=== PATIENT | female | born 1955 | race Caucasian/White ===

== ENCOUNTER 2019-01-11 10:22 | Inpatient (IN) ==
[2019-01-11] MEDS ORDERED: Azithromycin 500 MG in 0.9 % Sodium Chloride 250 ML IVPB ONE (10:51)
[2019-01-11] MEDS ORDERED: methylPREDNISolone 125 MG/2 ML VIAL IVP ONE (10:51)
[2019-01-11] MEDS ORDERED: Ipratropium/Albuterol Neb 3 ML IH ONE (10:51)
[2019-01-11] MEDS ORDERED: cefTRIAXone 1,000 MG in Water for inj. (sterile) 10 ML IVP ONE (10:51)
[2019-01-11 11:23] LABS: Basophils % 0.4 %; Eosinophils # 0.2 K/mcL (0.0-0.6); Eosinophils % 2.5 %; Hematocrit 30.3 % (35.3-44.9); Hemoglobin 9.2 g/dL (11.5-15.4); Immature Granulocytes % 0.8 % (0-4); Lymphocytes # 1.5 K/mcL (0.6-4.6); Lymphocytes % 20.2 %; Mean Corpuscular HGB Conc 30.4 g/dL (31.6-35.5); Mean Corpuscular Hemoglobin 28.6 pg (28.0-33.3); Mean Corpuscular Volume 94.1 fL (83.0-100.0); Mean Platelet Volume 10.7 fL (9.4-12.4); Monocytes # 0.4 K/mcL (0.0-1.3); Monocytes % 6.1 %; Nucleated Red Blood Cells 0.3 /100 WBC (0); Platelet Count 141 K/mcL (140-400); Red Blood Count 3.22 M/mcL (3.82-4.97); White Blood Count 7.2 K/mcL (4.3-11.1)
[2019-01-11 11:45] LABS: BUN/Creatinine Ratio 20 (6-26); Blood Urea Nitrogen 20 mg/dL (8-23); Calcium 9.2 mg/dL (8.6-10.3); Carbon Dioxide 37 mEq/L (23-29); Chloride 92 mEq/L (98-107); Glucose 132 mg/dL (70-105); Osmolality,Calculated 286 (280-300); Potassium 4.4 mEq/L (3.5-5.1); Sodium 136 mEq/L (136-145); Troponin I < 0.03 ng/mL (< 0.04); eGFR For African Americans > 60 (> 60); eGFR For Non-African Americans 57 (> 60)
[2019-01-11] MEDS ORDERED: Furosemide 40 MG/4 ML VIAL IVP ONE (14:58)
[2019-01-11] MEDS ORDERED: Nitroglycerin 1 INCH/GM PACKET TP ONE (14:58)
[2019-01-11] MEDS ORDERED: Naloxone 0.4 MG/ML INJ IVP PRN (16:29)
[2019-01-11] MEDS ORDERED: Furosemide 80 MG in 0.9 % Sodium Chloride 50 ML IV ONE (16:30)
[2019-01-11] MEDS ORDERED: *HR* Dextrose 50 % in Water (Syg) 50 ML SYRINGE IVP PRN (18:16)
[2019-01-11] MEDS ORDERED: D5% in Water 1,000 ML IVC PRN (18:16)
[2019-01-11] MEDS ORDERED: Dextrose Gel 15 GM/37.5 ML TUBE PO PRN ×2 (18:16)
[2019-01-11] MEDS: Latanoprost 2.5 ML BOTTLE BOTH EYES SCH (22:07)
[2019-01-11] MEDS: *HR* Heparin 5,000 UNIT/ML VIAL SQ SCH (22:10)
[2019-01-11] MEDS: Loratadine/Pseudophed (12 HR) 1 EACH TABLET PO SCH (22:49)
[2019-01-11] MEDS: Lisinopril 20 MG TABLET PO SCH (22:49)
[2019-01-11] MEDS: rOPINIRole 1 MG TABLET PO SCH (22:50)
[2019-01-12 04:52] LABS: Calcium 9.6 mg/dL (8.6-10.3); Potassium 4.8 mEq/L (3.5-5.1)
[2019-01-12] MEDS: *HR* Heparin 5,000 UNIT/ML VIAL SQ SCH ×4 (05:29→20:57)
[2019-01-12] MEDS: Lisinopril 20 MG TABLET PO SCH (08:58)
[2019-01-12] MEDS: Furosemide 40 MG/4 ML VIAL IVP SCH (08:58)
[2019-01-12] MEDS: Insulin LISPRO 300 UNITS/3 ML VIAL SQ SCH ×3 (08:58→17:00)
[2019-01-12] MEDS ORDERED: rOPINIRole 1 MG TABLET PO SCH (09:00)
[2019-01-12] MEDS ORDERED: Lisinopril 20 MG TABLET PO SCH (09:00)
[2019-01-12] MEDS: Acetylcysteine 10% 2 ML INHSOL IH SCH ×3 (10:48→20:09)
[2019-01-12 11:19] LABS: ABG Base Excess 13 mEq/L (-2 to 3); ABG HCO3 40 mEq/L (21-27); ABG Oxygen Saturation 95 % (95-98); ABG PCO2 67 mmHg (35-45); ABG PH 7.39 pH Units (7.32-7.45); ABG PO2 77 mmHg (85-104); ABG TCO2 42 mEq/L (20-26)
[2019-01-12] MEDS: Ipratropium/Albuterol Neb 3 ML IH SCH ×3 (14:33→20:09)
[2019-01-12] MEDS ORDERED: *HR* HYDROcodone/Acet 5/325 mg TABLET PO PRN (17:25)
[2019-01-12] MEDS ORDERED: Ergocalciferol (VIT D2) 50,000 UNIT (1.25MG) CAP PO SCH (18:00)
[2019-01-12] MEDS: Loratadine/Pseudophed (12 HR) 1 EACH TABLET PO SCH (20:55)
[2019-01-12] MEDS: rOPINIRole 1 MG TABLET PO SCH (20:56)
[2019-01-12] MEDS: Latanoprost 2.5 ML BOTTLE BOTH EYES SCH (20:57)
[2019-01-13] MEDS: Ipratropium/Albuterol Neb 3 ML IH SCH ×7 (00:03→23:17)
[2019-01-13] MEDS: Acetylcysteine 10% 2 ML INHSOL IH SCH ×7 (00:03→23:16)
[2019-01-13] MEDS: *HR* Heparin 5,000 UNIT/ML VIAL SQ SCH ×3 (06:06→21:48)
[2019-01-13] MEDS: Insulin LISPRO 300 UNITS/3 ML VIAL SQ SCH ×3 (08:45→16:22)
[2019-01-13] MEDS: Lisinopril 20 MG TABLET PO SCH (08:46)
[2019-01-13] MEDS: Furosemide 40 MG/4 ML VIAL IVP SCH (08:47)
[2019-01-13] MEDS ORDERED: NON-FORMULARY MEDICATION 1 EACH EACH (Omeprazole [Prilosec] 40 MG) PO SCH (09:00)
[2019-01-13] MEDS ORDERED: Benzonatate 100 MG CAPSULE PO PRN (11:21)
[2019-01-13] MEDS: Loratadine/Pseudophed (12 HR) 1 EACH TABLET PO SCH (21:43)
[2019-01-13] MEDS: rOPINIRole 1 MG TABLET PO SCH (21:47)
[2019-01-13] MEDS: Latanoprost 2.5 ML BOTTLE BOTH EYES SCH (21:52)
[2019-01-14] MEDS: Acetylcysteine 10% 2 ML INHSOL IH SCH ×2 (03:43→07:57)
[2019-01-14] MEDS: Ipratropium/Albuterol Neb 3 ML IH SCH ×2 (03:47→07:53)
[2019-01-14] MEDS: *HR* Heparin 5,000 UNIT/ML VIAL SQ SCH ×3 (05:52→21:06)
[2019-01-14] MEDS: Insulin LISPRO 300 UNITS/3 ML VIAL SQ SCH ×3 (07:22→16:29)
[2019-01-14] MEDS ORDERED: Ipratropium/Albuterol Neb 3 ML IH PRN (08:07)
[2019-01-14] MEDS: Lisinopril 20 MG TABLET PO SCH (08:16)
[2019-01-14] MEDS: Furosemide 40 MG/4 ML VIAL IVP SCH (08:16)
[2019-01-14] MEDS: Loratadine/Pseudophed (12 HR) 1 EACH TABLET PO SCH (21:04)
[2019-01-14] MEDS: rOPINIRole 1 MG TABLET PO SCH (21:06)
[2019-01-14] MEDS: Latanoprost 2.5 ML BOTTLE BOTH EYES SCH (21:07)
[2019-01-15] MEDS: *HR* Heparin 5,000 UNIT/ML VIAL SQ SCH (05:57)
[2019-01-15] MEDS: Insulin LISPRO 300 UNITS/3 ML VIAL SQ SCH (07:08)
[2019-01-15] MEDS: Furosemide 40 MG/4 ML VIAL IVP SCH (08:16)
[2019-01-15] MEDS: Lisinopril 20 MG TABLET PO SCH (08:17)
[2019-01-15 15:08] VITALS: BP 147/77
== END 2019-01-15 15:34 | disposition home or self-care (01) | DRG 189 ==
LOC: 3BNU 10:22 → EMEROOARM 10:22 → 3BNU 16:58
PROVIDERS: ADMIT Internal Medicine Nephrology; ATTEND Internal Medicine Nephrology

== ENCOUNTER 2019-05-05 08:54 | Inpatient (IN) ==
[2019-05-05] MEDS ORDERED: Isovue-370 500 ML BOTTLE IVP ONE (09:26)
[2019-05-05] MEDS ORDERED: *HR* Promethazine 25 MG/ML VIAL IVP ONE (09:27)
[2019-05-05] MEDS ORDERED: *HR* HYDROmorphone (PF) 1 MG/ML SYRINGE IVP ONE (09:27)
[2019-05-05] MEDS ORDERED: 0.9 % Sodium Chloride 1,000 ML IVC ONE (09:27)
[2019-05-05 10:05] LABS: Basophils % 0.6 %; Eosinophils # 0.2 K/mcL (0.0-0.6); Eosinophils % 2.7 %; Hemoglobin 10.7 g/dL (11.5-15.4); Immature Granulocytes % 0.6 % (0-4); Lymphocytes # 1.2 K/mcL (0.6-4.6); Lymphocytes % 18.2 %; Mean Corpuscular HGB Conc 31.5 g/dL (31.6-35.5); Mean Corpuscular Hemoglobin 28.6 pg (28.0-33.3); Mean Corpuscular Volume 90.9 fL (83.0-100.0); Mean Platelet Volume 11.1 fL (9.4-12.4); Monocytes # 0.4 K/mcL (0.0-1.3); Monocytes % 5.6 %; Neutrophils # 4.6 K/mcL (1.6-8.9); Platelet Count 137 K/mcL (140-400); Red Blood Count 3.74 M/mcL (3.82-4.97); Red Cell Distribution Width 15.6 % (11.5-14.5); Segmented Neutrophils % 72.3 %; White Blood Count 6.4 K/mcL (4.3-11.1)
[2019-05-05 10:27] LABS: Alanine Aminotransferase 19 Units/L (7-52); Albumin 3.7 g/dL (3.5-5.7); Albumin/Globulin Ratio 1.5 (1.1-2.2); Alkaline Phosphatase 40 Units/L (34-104); Aspartate Amino Transferase 24 Units/L (13-39); BUN/Creatinine Ratio 19 (6-26); Bilirubin,Direct 0.1 mg/dL (0.0-0.2); Bilirubin,Indirect 0.4 mg/dL (0.0-1.0); Bilirubin,Total 0.5 mg/dL (0.3-1.0); Blood Urea Nitrogen 19 mg/dL (8-23); Calcium 9.2 mg/dL (8.6-10.3); Carbon Dioxide 33 mEq/L (23-29); Chloride 99 mEq/L (98-107); Globulin 2.5 g/dL (2.4-3.5); Glucose 166 mg/dL (70-105); Osmolality,Calculated 294 (280-300); Potassium 4.5 mEq/L (3.5-5.1); Sodium 139 mEq/L (136-145); Total Protein 6.2 g/dL (6.4-8.9); eGFR For African Americans > 60 (> 60); eGFR For Non-African Americans 55 (> 60)
[2019-05-05] MEDS ORDERED: *HR* FentaNYL (PF) 100 MCG/2 ML VIAL IVP ONE ×2 (10:41→13:04)
[2019-05-05] MEDS ORDERED: Isovue-370 500 ML BOTTLE PO ONE (11:52)
[2019-05-05] MEDS ORDERED: 0.9 % Sodium Chloride 1,000 ML IVC SCH (13:00)
[2019-05-05] MEDS ORDERED: *HR* Midazolam HCl 2 MG/2 ML VIAL ONE (14:03)
[2019-05-05] MEDS ORDERED: *HR* FentaNYL (PF) 100 MCG/2 ML VIAL ONE (14:03)
[2019-05-05] MEDS ORDERED: Ondansetron 4 MG/2 ML VIAL ONE (14:04)
[2019-05-05] MEDS ORDERED: *HR* Rocuronium Bromide 50 MG/5 ML VIAL ONE (14:04)
[2019-05-05] MEDS ORDERED: Dexamethasone 4 MG/ML VIAL ONE (14:04)
[2019-05-05] MEDS ORDERED: *HR* Propofol 200 MG/20 ML VIAL IVP ONE (14:04)
[2019-05-05] MEDS ORDERED: Lidocaine HCL 4 ML Topical Solution (Laryng-O-Jet Kit Sterile Pak) TP ONE (14:05)
[2019-05-05] MEDS ORDERED: Bupivacaine/EPI 1:200k 0.5%PF 30 ML VIAL ONE (14:20)
[2019-05-05] MEDS ORDERED: Albuterol 2.5 MG/3 ML NEBULIZER IH ONE (14:25)
[2019-05-05] MEDS ORDERED: *HR* Vasopressin 20 UNIT/ML VIAL ONE (14:27)
[2019-05-05] MEDS ORDERED: Acetaminophen IV 1,000 MG/100 ML INFUS..BTL ONE (14:27)
[2019-05-05] MEDS ORDERED: Famotidine 20 MG/2 ML VIAL ONE (14:27)
[2019-05-05] MEDS ORDERED: Lidocaine -MPF 2% 2 ML VIAL ONE (14:30)
[2019-05-05] MEDS ORDERED: *HR* Succinylcholine 200 MG/10 ML VIAL IVP ONE (14:33)
[2019-05-05] MEDS ORDERED: Naloxone 0.4 MG/ML INJ IVP PRN ×2 (14:52→17:39)
[2019-05-05] MEDS ORDERED: *HR* Dextrose 50 % in Water (Syg) 50 ML SYRINGE IVP PRN ×2 (14:54→17:39)
[2019-05-05] MEDS ORDERED: D5% in Water 1,000 ML IVC PRN ×2 (14:54→17:39)
[2019-05-05] MEDS ORDERED: Dextrose Gel 15 GM/37.5 ML TUBE PO PRN ×4 (14:54→17:39)
[2019-05-05] MEDS ORDERED: Ipratropium/Albuterol Neb 3 ML IH PRN ×2 (14:56→17:39)
[2019-05-05] MEDS ORDERED: D5% in Lactated Ringers 1,000 ML IVC SCH (15:00)
[2019-05-05] MEDS ORDERED: Clindamycin 600 MG/50 ML 600 MG/50 ML IV.SOLN IVPB ONE (15:02)
[2019-05-05] MEDS ORDERED: Naloxone 0.4 MG/ML INJ ONE (16:37)
[2019-05-05] MEDS: *HR* OxyCODONE/APAP 5/325 TABLET PO PRN ×2 (17:58→22:13)
[2019-05-05] MEDS ORDERED: Insulin LISPRO 300 UNITS/3 ML VIAL SQ SCH (18:00)
[2019-05-05] MEDS ORDERED: Latanoprost 2.5 ML BOTTLE BOTH EYES SCH (21:00)
[2019-05-05] MEDS: Insulin LISPRO 300 UNITS/3 ML VIAL SQ SCH (21:03)
[2019-05-05] MEDS: Latanoprost 2.5 ML BOTTLE BOTH EYES SCH (21:30)
[2019-05-06] MEDS: Insulin LISPRO 300 UNITS/3 ML VIAL SQ SCH ×5 (03:01→21:03)
[2019-05-06] MEDS: D5% in Lactated Ringers 1,000 ML IVC SCH ×2 (03:50→16:27)
[2019-05-06 05:33] LABS: Basophils % 0.1 %; Eosinophils % 0.1 %; Hematocrit 30.5 % (35.3-44.9); Hemoglobin 9.5 g/dL (11.5-15.4); Lymphocytes # 0.9 K/mcL (0.6-4.6); Lymphocytes % 10.5 %; Mean Corpuscular HGB Conc 31.1 g/dL (31.6-35.5); Mean Corpuscular Hemoglobin 28.4 pg (28.0-33.3); Mean Corpuscular Volume 91.3 fL (83.0-100.0); Mean Platelet Volume 10.9 fL (9.4-12.4); Monocytes # 0.3 K/mcL (0.0-1.3); Monocytes % 4.1 %; Platelet Count 143 K/mcL (140-400); Red Blood Count 3.34 M/mcL (3.82-4.97); Red Cell Distribution Width 15.6 % (11.5-14.5); Segmented Neutrophils % 84.2 %; White Blood Count 8.3 K/mcL (4.3-11.1)
[2019-05-06 05:54] LABS: BUN/Creatinine Ratio 16 (6-26); Blood Urea Nitrogen 17 mg/dL (8-23); Calcium 8.8 mg/dL (8.6-10.3); Carbon Dioxide 32 mEq/L (23-29); Chloride 101 mEq/L (98-107); Glucose 128 mg/dL (70-105); Magnesium 1.7 mg/dL (1.6-2.6); Osmolality,Calculated 285 (280-300); Phosphorous 4.9 mg/dL (2.7-4.5); Potassium 5.1 mEq/L (3.5-5.1); Sodium 136 mEq/L (136-145); eGFR For African Americans > 60 (> 60); eGFR For Non-African Americans 52 (> 60)
[2019-05-06] MEDS: Pantoprazole 40 MG VIAL IVP SCH (08:21)
[2019-05-06] MEDS: *HR* OxyCODONE/APAP 5/325 TABLET PO PRN ×3 (08:24→21:07)
[2019-05-06] MEDS ORDERED: Pantoprazole 40 MG VIAL IVP SCH (09:00)
[2019-05-06] MEDS ORDERED: Furosemide 40 MG TABLET PO SCH (09:00)
[2019-05-06] MEDS ORDERED: Lisinopril 20 MG TABLET PO SCH (21:00)
[2019-05-06] MEDS: Latanoprost 2.5 ML BOTTLE BOTH EYES SCH (21:07)
[2019-05-07 05:39] LABS: Basophils % 0.3 %; Eosinophils # 0.1 K/mcL (0.0-0.6); Hematocrit 29.3 % (35.3-44.9); Hemoglobin 8.9 g/dL (11.5-15.4); Immature Granulocytes % 0.9 % (0-4); Lymphocytes # 1.6 K/mcL (0.6-4.6); Mean Corpuscular HGB Conc 30.4 g/dL (31.6-35.5); Mean Corpuscular Volume 95.4 fL (83.0-100.0); Monocytes # 0.6 K/mcL (0.0-1.3); Monocytes % 8.4 %; Neutrophils # 4.7 K/mcL (1.6-8.9); Platelet Count 123 K/mcL (140-400); Red Blood Count 3.07 M/mcL (3.82-4.97); Segmented Neutrophils % 66.4 %
[2019-05-07 05:58] LABS: Calcium 9.1 mg/dL (8.6-10.3); Magnesium 1.8 mg/dL (1.6-2.6); Potassium 4.4 mEq/L (3.5-5.1)
[2019-05-07] MEDS: Insulin LISPRO 300 UNITS/3 ML VIAL SQ SCH (08:00)
[2019-05-07 08:23] VITALS: BP 132/60
[2019-05-07] MEDS: *HR* OxyCODONE/APAP 5/325 TABLET PO PRN (09:26)
[2019-05-07] MEDS: Pantoprazole 40 MG VIAL IVP SCH (09:30)
== END 2019-05-07 11:25 | disposition home or self-care (01) | DRG 336 ==
LOC: EMEROOARM 08:54 → 3ANU 14:28 → SUATTDRO 14:42 → 2NENU 17:11
PROVIDERS: ADMIT Surgery; ATTEND Internal Medicine

== ENCOUNTER 2021-03-20 17:46 | Inpatient (IN) ==
[2021-03-20 19:35] LABS: Basophils % 0.4 %; Eosinophils # 0.1 K/mcL (0.0-0.6); Eosinophils % 1.3 %; Immature Granulocytes % 1.3 % (0-4); Lymphocytes # 0.9 K/mcL (0.6-4.6); Lymphocytes % 10.8 %; Mean Corpuscular Hemoglobin 28.1 pg (28.0-33.3); Mean Corpuscular Volume 96.9 fL (83.0-100.0); Mean Platelet Volume 11.7 fL (9.4-12.4); Monocytes # 0.4 K/mcL (0.0-1.3); Monocytes % 4.9 %; Neutrophils # 6.9 K/mcL (1.6-8.9); Platelet Count 140 K/mcL (140-400); Red Cell Distribution Width 16.4 % (11.5-14.5); Segmented Neutrophils % 81.3 %; White Blood Count 8.5 K/mcL (4.3-11.1)
[2021-03-20 19:49] LABS: Alanine Aminotransferase 10 Units/L (7-52); Albumin 3.7 g/dL (3.5-5.7); Albumin/Globulin Ratio 1.3 (1.1-2.2); Alkaline Phosphatase 37 Units/L (34-104); Aspartate Amino Transferase 12 Units/L (13-39); BUN/Creatinine Ratio 20 (6-26); Bilirubin,Direct 0.1 mg/dL (0.0-0.2); Bilirubin,Indirect 0.5 mg/dL (0.0-1.0); Bilirubin,Total 0.6 mg/dL (0.3-1.0); Blood Urea Nitrogen 37 mg/dL (8-23); Calcium 8.5 mg/dL (8.6-10.3); Carbon Dioxide 37 mEq/L (23-29); Chloride 94 mEq/L (98-107); Globulin 2.8 g/dL (2.4-3.5); Glucose 105 mg/dL (70-105); Osmolality,Calculated 303 (280-300); Potassium 3.4 mEq/L (3.5-5.1); Sodium 142 mEq/L (136-145); Total Protein 6.5 g/dL (6.4-8.9); Troponin I < 0.03 ng/mL (< 0.04); eGFR For African Americans 34 (> 60); eGFR For Non-African Americans 28 (> 60)
[2021-03-20 20:02] LABS: VBG HCO3 34 mEq/L (21-27); VBG PCO2 48 mmHg (41-51); VBG PH 7.47 pH Units (7.32-7.42); VBG PO2 186 mmHg (25-50)
[2021-03-20] MEDS ORDERED: Furosemide 40 MG/4 ML VIAL IVP ONE (20:49)
[2021-03-20 22:12] LABS: Influenza A PCR Negative (Negative); Influenza B PCR Negative (Negative); Resp. Syncytial Virus PCR Negative (Negative); SARS-CoV-2 by PCR (In House) Negative (Negative)
[2021-03-20 22:42] LABS: Bilirubin,Urine Negative (Negative); Blood,Urine Negative (Negative); Clarity,Urine Clear (Clear); Color,Urine Light-Yellow (Yellow); Glucose,Urine (UA) Normal (Normal); Hyaline Casts,Urine Few per lpf (None Seen); Ketones,Urine Negative (Negative); Leukocyte Esterase,Urine Negative (Negative); Mucus,Urine Few per lpf (None-Few); Nitrite,Urine Negative (Negative); Protein,Urine 30 mg/dL (Neg-Trace); RBC,Urine 0-3 per hpf (0-3); Specific Gravity,Urine 1.011 (1.010-1.025); Squamous Epithelial Cell,Urine Few per hpf (None-Few); Urobilinogen,Urine Normal (Normal); WBC,Urine 0-3 per hpf (0-3)
[2021-03-20] MEDS ORDERED: *HR* Promethazine 25 MG/ML VIAL IM PRN (22:53)
[2021-03-20] MEDS ORDERED: Acetaminophen 325 MG TABLET PO PRN (22:53)
[2021-03-20] MEDS ORDERED: Naloxone 0.4 MG/ML INJ IVP PRN (22:53)
[2021-03-20] MEDS ORDERED: Melatonin 3 MG TABLET PO PRN (22:53)
[2021-03-20] MEDS ORDERED: *HR* HYDROcodone/Acet 5/325 mg TABLET PO PRN (22:53)
[2021-03-20] MEDS ORDERED: Dextrose Gel 15 GM/37.5 ML TUBE PO PRN ×2 (23:17)
[2021-03-20] MEDS ORDERED: D5% in Water 1,000 ML IVC PRN (23:17)
[2021-03-20] MEDS ORDERED: *HR* Dextrose 50 % in Water (Syg) 50 ML SYRINGE IVP PRN (23:17)
[2021-03-21] MEDS ORDERED: Perflutren Lipid Microsphere 1.3 ML in 0.9 % Sodium Chloride 8.7 ML IVP PRN (00:30)
[2021-03-21 00:51] LABS: Mean Corpuscular Volume 98.5 fL (83.0-100.0); Red Cell Distribution Width 16.5 % (11.5-14.5)
[2021-03-21 00:52] LABS: Hematocrit 32.2 % (35.3-44.9); Hemoglobin 9.2 g/dL (11.5-15.4); Immature Platelets 7.5 % (1.1-6.1); Mean Corpuscular HGB Conc 28.6 g/dL (31.6-35.5); Mean Corpuscular Hemoglobin 28.1 pg (28.0-33.3); Mean Platelet Volume 11.4 fL (9.4-12.4); Red Blood Count 3.27 M/mcL (3.82-4.97); White Blood Count 9.1 K/mcL (4.3-11.1)
[2021-03-21 01:20] LABS: Thyroid Stimulating Hormone 1.834 mcIU/mL (0.340-5.600)
[2021-03-21 01:30] LABS: Folate 8.9 ng/mL (3.0-16.0)
[2021-03-21 01:33] LABS: Calcium 8.4 mg/dL (8.6-10.3); Magnesium 1.4 mg/dL (1.6-2.6); Phosphorous 5.4 mg/dL (2.7-4.5); Potassium 3.6 mEq/L (3.5-5.1)
[2021-03-21] MEDS: Ipratropium/Albuterol Neb 3 ML IH SCH ×5 (03:36→19:57)
[2021-03-21 05:57] LABS: Estimated Average Glucose 117 mg/dl; Hemoglobin A1C 5.7 %
[2021-03-21] MEDS: *HR* Heparin 5,000 UNIT/ML VIAL SQ SCH ×3 (06:10→22:44)
[2021-03-21] MEDS ORDERED: Iron Sucrose Complex 400 MG in 0.9 % Sodium Chloride 250 ML IVPB ONE (06:30)
[2021-03-21] MEDS ORDERED: Albumin 25% 25gram/100mL 25 GM/100 ML IV.SOLN IVPB SCH (08:00)
[2021-03-21] MEDS ORDERED: Chlorhexidine Rinse 15 ML MOUTHWASH MM SCH (09:00)
[2021-03-21] MEDS ORDERED: Cyanocobalamin (B-12) 1,000 MCG TABLET PO SCH (09:00)
[2021-03-21] MEDS ORDERED: Furosemide 20 MG/2 ML VIAL IVP SCH (09:00)
[2021-03-21] MEDS ORDERED: predniSONE 20 MG TABLET PO SCH (09:00)
[2021-03-21] MEDS ORDERED: Lactobacillus 1 EACH CAP.SPRINK PO SCH (09:00)
[2021-03-21] MEDS ORDERED: Azithromycin 250 MG TABLET PO SCH (09:00)
[2021-03-21] MEDS ORDERED: Multivit/Ca/Min/Fe/FA 1 TAB TABLET PO SCH (09:00)
[2021-03-21] MEDS ORDERED: Albuterol 2.5 MG/3 ML NEBULIZER IH PRN ×2 (09:07→17:11)
[2021-03-21] MEDS: Insulin LISPRO 300 UNITS/3 ML VIAL SUBQ SCH ×2 (09:27→13:19)
[2021-03-21] MEDS ORDERED: Budesonide/Formoterol 160/4.5 1 PUFF INH IH SCH (10:00)
[2021-03-21] MEDS: carvediloL 6.25 MG TABLET PO SCH (10:27)
[2021-03-21 11:12] LABS: Adenovirus F 40/41 PCR Not detected (Not detect); Astrovirus PCR Not detected (Not detect); C.difficile Toxin A/B Gene PCR Not detected (Not detect); Campylobacter by PCR Not detected (Not detect); Cryptosporidium by PCR Not detected (Not detect); Cyclospora cayetanensis PCR Not detected (Not detect); E. coli O157 by PCR Not detected (Not detect); Entamoeba histolytica PCR Not detected (Not detect); Enteroaggregative E.coli(EAEC) Not detected (Not detect); Enteropathogenic E.coli(EPEC) Not detected (Not detect); Enterotoxigenic E.coli (ETEC) Not detected (Not detect); Giardia lamblia PCR Not detected (Not detect); Norovirus GI/GII PCR Not detected (Not detect); Plesiomonas shigelloides PCR Not detected (Not detect); Rotavirus A PCR Not detected (Not detect); Salmonella PCR Not detected (Not detect); Sapovirus PCR Not detected (Not detect); Shig/EnteroinvasiveE coli EIEC Not detected (Not detect); Shigalike tox-prod E coli STEC Not detected (Not detect); Vibrio PCR Not detected (Not detect); Vibrio cholerae PCR Not detected (Not detect); Yersinia enterocolitica PCR Not detected (Not detect)
[2021-03-21 14:35] LABS: ABG Base Excess 7 mEq/L (-2 to 3); ABG HCO3 38 mEq/L (21-27); ABG Oxygen Saturation 97 % (95-98); ABG PCO2 114 mmHg (35-45); ABG PH 7.13 pH Units (7.32-7.45); ABG PO2 130 mmHg (85-104); ABG TCO2 42 mEq/L (20-26); Blood Gas Modality BiLevel
[2021-03-21] MEDS ORDERED: *HR* Promethazine 25 MG/ML VIAL IM PRN (17:11)
[2021-03-21] MEDS ORDERED: Melatonin 3 MG TABLET PO PRN (17:11)
[2021-03-21] MEDS ORDERED: D5% in Water 1,000 ML IVC PRN (17:11)
[2021-03-21] MEDS ORDERED: *HR* Dextrose 50 % in Water (Syg) 50 ML SYRINGE IVP PRN (17:11)
[2021-03-21] MEDS ORDERED: Dextrose Gel 15 GM/37.5 ML TUBE PO PRN ×2 (17:11)
[2021-03-21] MEDS ORDERED: Naloxone 0.4 MG/ML INJ IVP PRN (17:11)
[2021-03-21] MEDS ORDERED: *HR* HYDROcodone/Acet 5/325 mg TABLET PO PRN (17:11)
[2021-03-21 17:30] LABS: Sodium, Urine 61.1 mEq/L
[2021-03-21] MEDS: Budesonide/Formoterol 160/4.5 1 PUFF INH IH SCH (19:57)
[2021-03-21 20:23] LABS: ABG Base Excess 14 mEq/L (-2 to 3); ABG HCO3 43 mEq/L (21-27); ABG Oxygen Saturation 89 % (95-98); ABG PCO2 87 mmHg (35-45); ABG PO2 67 mmHg (85-104); ABG TCO2 45 mEq/L (20-26); Blood Gas Modality BIVENT
[2021-03-21] MEDS: Albumin 25% 25gram/100mL 25 GM/100 ML IV.SOLN IVPB SCH (20:24)
[2021-03-21] MEDS: Lactobacillus 1 EACH CAP.SPRINK PO SCH (20:31)
[2021-03-21] MEDS: Chlorhexidine Rinse 15 ML MOUTHWASH MM SCH (20:35)
[2021-03-21] MEDS ORDERED: Latanoprost 2.5 ML BOTTLE BOTH EYES SCH (21:00)
[2021-03-21] MEDS: Furosemide 20 MG/2 ML VIAL IVP SCH (22:40)
[2021-03-21] MEDS: Latanoprost 2.5 ML BOTTLE BOTH EYES SCH (22:40)
[2021-03-22 01:02] LABS: Mean Platelet Volume 11.6 fL (9.4-12.4)
[2021-03-22 01:04] LABS: Basophils % 0.3 %; Eosinophils % 0.2 %; Hematocrit 28.3 % (35.3-44.9); Immature Platelets 6.2 % (1.1-6.1); Lymphocytes # 0.5 K/mcL (0.6-4.6); Lymphocytes % 8.4 %; Mean Corpuscular HGB Conc 28.3 g/dL (31.6-35.5); Monocytes # 0.3 K/mcL (0.0-1.3); Monocytes % 4.3 %; Red Blood Count 2.86 M/mcL (3.82-4.97); Red Cell Distribution Width 16.1 % (11.5-14.5); Segmented Neutrophils % 84.8 %; White Blood Count 5.9 K/mcL (4.3-11.1)
[2021-03-22 01:06] LABS: Platelet Count 98 K/mcL (140-400)
[2021-03-22 01:21] LABS: Calcium 8.3 mg/dL (8.6-10.3); Potassium 4.1 mEq/L (3.5-5.1)
[2021-03-22] MEDS: Ipratropium/Albuterol Neb 3 ML IH SCH ×4 (04:11→20:23)
[2021-03-22] MEDS: *HR* Heparin 5,000 UNIT/ML VIAL SQ SCH ×3 (05:51→22:13)
[2021-03-22] MEDS: Insulin LISPRO 300 UNITS/3 ML VIAL SUBQ SCH ×4 (07:13→16:37)
[2021-03-22] MEDS: carvediloL 6.25 MG TABLET PO SCH ×3 (07:14→16:37)
[2021-03-22] MEDS: predniSONE 20 MG TABLET PO SCH (08:31)
[2021-03-22] MEDS: Multivit/Ca/Min/Fe/FA 1 TAB TABLET PO SCH (08:31)
[2021-03-22] MEDS: Azithromycin 250 MG TABLET PO SCH (08:31)
[2021-03-22] MEDS: Chlorhexidine Rinse 15 ML MOUTHWASH MM SCH ×2 (08:31→19:51)
[2021-03-22] MEDS: Lactobacillus 1 EACH CAP.SPRINK PO SCH ×2 (08:31→19:51)
[2021-03-22] MEDS: Albumin 25% 25gram/100mL 25 GM/100 ML IV.SOLN IVPB SCH ×2 (08:31→19:51)
[2021-03-22] MEDS: Cyanocobalamin (B-12) 1,000 MCG TABLET PO SCH (08:31)
[2021-03-22] MEDS: Furosemide 20 MG/2 ML VIAL IVP SCH ×2 (09:37→22:13)
[2021-03-22] MEDS: Budesonide/Formoterol 160/4.5 1 PUFF INH IH SCH ×2 (09:41→20:21)
[2021-03-22 12:39] LABS: Hepatitis B Surface Antigen Nonreactive (Nonreactive)
[2021-03-22 13:07] LABS: Hepatitis B Core IgM Nonreactive (Nonreactive)
[2021-03-22 13:08] LABS: Hepatitis C Virus Antibody Nonreactive (Nonreactive)
[2021-03-22 13:09] LABS: Hepatitis A Antibody IgM Nonreactive (Nonreactive)
[2021-03-22] MEDS: Latanoprost 2.5 ML BOTTLE BOTH EYES SCH (21:35)
[2021-03-23 03:08] LABS: Platelet Count 103 K/mcL (140-400)
[2021-03-23 03:09] LABS: Basophils % 0.3 %; Eosinophils % 0.1 %; Hematocrit 27.9 % (35.3-44.9); Hemoglobin 7.8 g/dL (11.5-15.4); Immature Granulocytes % 2.4 % (0-4); Lymphocytes # 0.6 K/mcL (0.6-4.6); Lymphocytes % 8.8 %; Mean Corpuscular Hemoglobin 28.5 pg (28.0-33.3); Mean Corpuscular Volume 101.8 fL (83.0-100.0); Mean Platelet Volume 11.9 fL (9.4-12.4); Monocytes # 0.5 K/mcL (0.0-1.3); Monocytes % 6.7 %; Neutrophils # 5.5 K/mcL (1.6-8.9); Nucleated Red Blood Cells 0.3 /100 WBC (0); Red Blood Count 2.74 M/mcL (3.82-4.97); Red Cell Distribution Width 16.5 % (11.5-14.5); Segmented Neutrophils % 81.7 %; White Blood Count 6.7 K/mcL (4.3-11.1)
[2021-03-23 03:25] LABS: Albumin/Globulin Ratio 1.8 (1.1-2.2); Bilirubin,Total 0.4 mg/dL (0.3-1.0); Calcium 8.4 mg/dL (8.6-10.3); Globulin 2.2 g/dL (2.4-3.5); Potassium 4.1 mEq/L (3.5-5.1); Total Protein 6.2 g/dL (6.4-8.9)
[2021-03-23] MEDS: Ipratropium/Albuterol Neb 3 ML IH SCH ×4 (03:42→22:24)
[2021-03-23] MEDS: *HR* Heparin 5,000 UNIT/ML VIAL SQ SCH ×3 (06:14→21:07)
[2021-03-23] MEDS: Insulin LISPRO 300 UNITS/3 ML VIAL SUBQ SCH ×3 (08:40→17:02)
[2021-03-23] MEDS: carvediloL 6.25 MG TABLET PO SCH ×2 (08:48→17:02)
[2021-03-23] MEDS: Multivit/Ca/Min/Fe/FA 1 TAB TABLET PO SCH (08:48)
[2021-03-23] MEDS: Azithromycin 250 MG TABLET PO SCH (08:48)
[2021-03-23] MEDS: Lactobacillus 1 EACH CAP.SPRINK PO SCH ×2 (08:48→21:08)
[2021-03-23] MEDS: Cyanocobalamin (B-12) 1,000 MCG TABLET PO SCH (08:48)
[2021-03-23] MEDS: predniSONE 20 MG TABLET PO SCH (08:48)
[2021-03-23] MEDS: Chlorhexidine Rinse 15 ML MOUTHWASH MM SCH ×2 (08:49→21:07)
[2021-03-23] MEDS: Albumin 25% 25gram/100mL 25 GM/100 ML IV.SOLN IVPB SCH ×2 (08:49→21:05)
[2021-03-23] MEDS ORDERED: Cyanocobalamin (B-12) 1,000 MCG/ML VIAL SQ SCH (09:00)
[2021-03-23 09:24] LABS: Hematocrit 29.5 % (35.3-44.9); Red Cell Distribution Width 16.4 % (11.5-14.5)
[2021-03-23 09:26] LABS: Hemoglobin 8.1 g/dL (11.5-15.4); Immature Platelets 7.7 % (1.1-6.1); Mean Corpuscular HGB Conc 27.5 g/dL (31.6-35.5); Mean Corpuscular Hemoglobin 27.6 pg (28.0-33.3); Mean Corpuscular Volume 100.3 fL (83.0-100.0); Mean Platelet Volume 11.9 fL (9.4-12.4); Red Blood Count 2.94 M/mcL (3.82-4.97)
[2021-03-23] MEDS: Budesonide/Formoterol 160/4.5 1 PUFF INH IH SCH ×2 (10:29→22:24)
[2021-03-23] MEDS: Latanoprost 2.5 ML BOTTLE BOTH EYES SCH ×2 (21:08→21:18)
[2021-03-24] MEDS: Ipratropium/Albuterol Neb 3 ML IH SCH ×4 (03:31→19:59)
[2021-03-24 04:01] LABS: ABG Base Excess 10 mEq/L (-2 to 3); ABG HCO3 41 mEq/L (21-27); ABG Oxygen Saturation 89 % (95-98); ABG PCO2 111 mmHg (35-45); ABG PH 7.18 pH Units (7.32-7.45); ABG PO2 75 mmHg (85-104); ABG TCO2 45 mEq/L (20-26)
[2021-03-24] MEDS: *HR* Heparin 5,000 UNIT/ML VIAL SQ SCH ×3 (05:59→22:16)
[2021-03-24 06:50] LABS: Eosinophils % 0.6 %; Hemoglobin 7.2 g/dL (11.5-15.4); Mean Corpuscular Volume 99.6 fL (83.0-100.0)
[2021-03-24 06:52] LABS: Basophils % 0.2 %; Immature Granulocytes % 1.7 % (0-4); Immature Platelets 8.5 % (1.1-6.1); Lymphocytes # 0.8 K/mcL (0.6-4.6); Lymphocytes % 14.8 %; Mean Corpuscular HGB Conc 28.8 g/dL (31.6-35.5); Mean Corpuscular Hemoglobin 28.7 pg (28.0-33.3); Mean Platelet Volume 11.3 fL (9.4-12.4); Monocytes # 0.4 K/mcL (0.0-1.3); Monocytes % 6.5 %; Neutrophils # 4.1 K/mcL (1.6-8.9); Platelet Count 111 K/mcL (140-400); Red Blood Count 2.51 M/mcL (3.82-4.97); Red Cell Distribution Width 16.1 % (11.5-14.5); Segmented Neutrophils % 76.2 %; White Blood Count 5.4 K/mcL (4.3-11.1)
[2021-03-24 07:12] LABS: Magnesium 1.9 mg/dL (1.6-2.6); Phosphorous 4.3 mg/dL (2.7-4.5); Potassium 3.6 mEq/L (3.5-5.1); Uric Acid 12.7 mg/dL (2.3-7.6)
[2021-03-24] MEDS: Insulin LISPRO 300 UNITS/3 ML VIAL SUBQ SCH ×3 (09:35→17:25)
[2021-03-24] MEDS: Albumin 25% 25gram/100mL 25 GM/100 ML IV.SOLN IVPB SCH ×2 (09:36→19:50)
[2021-03-24] MEDS: Azithromycin 250 MG TABLET PO SCH (09:40)
[2021-03-24] MEDS: Cyanocobalamin (B-12) 1,000 MCG TABLET PO SCH (09:40)
[2021-03-24] MEDS: Lactobacillus 1 EACH CAP.SPRINK PO SCH ×2 (09:40→19:50)
[2021-03-24] MEDS: predniSONE 20 MG TABLET PO SCH (09:40)
[2021-03-24] MEDS: Chlorhexidine Rinse 15 ML MOUTHWASH MM SCH ×2 (09:40→19:50)
[2021-03-24] MEDS: Multivit/Ca/Min/Fe/FA 1 TAB TABLET PO SCH (09:40)
[2021-03-24] MEDS: carvediloL 6.25 MG TABLET PO SCH ×2 (09:40→17:24)
[2021-03-24] MEDS: Budesonide/Formoterol 160/4.5 1 PUFF INH IH SCH ×2 (10:13→20:00)
[2021-03-24 14:40] LABS: Red Blood Count 2.76 M/mcL (3.82-4.97)
[2021-03-24 14:42] LABS: Hematocrit 27.8 % (35.3-44.9); Hemoglobin 7.7 g/dL (11.5-15.4); Immature Platelets 7.9 % (1.1-6.1); Mean Corpuscular HGB Conc 27.7 g/dL (31.6-35.5); Mean Corpuscular Hemoglobin 27.9 pg (28.0-33.3); Mean Corpuscular Volume 100.7 fL (83.0-100.0); Mean Platelet Volume 11.4 fL (9.4-12.4); Red Cell Distribution Width 16.6 % (11.5-14.5); White Blood Count 6.1 K/mcL (4.3-11.1)
[2021-03-24] MEDS: Latanoprost 2.5 ML BOTTLE BOTH EYES SCH (19:49)
[2021-03-24] MEDS ORDERED: Insulin DETEMIR 100 UNIT/ML X5UNITS SUBQ SCH (21:00)
[2021-03-25 01:02] LABS: Basophils % 0.2 %; Eosinophils % 0.2 %; Mean Platelet Volume 11.3 fL (9.4-12.4); Red Cell Distribution Width 16.3 % (11.5-14.5)
[2021-03-25 01:04] LABS: Hematocrit 27.3 % (35.3-44.9); Hemoglobin 7.8 g/dL (11.5-15.4); Immature Granulocytes % 3.7 % (0-4); Immature Platelets 7.7 % (1.1-6.1); Lymphocytes # 0.4 K/mcL (0.6-4.6); Lymphocytes % 7.8 %; Mean Corpuscular HGB Conc 28.6 g/dL (31.6-35.5); Mean Corpuscular Hemoglobin 28.3 pg (28.0-33.3); Mean Corpuscular Volume 98.9 fL (83.0-100.0); Monocytes # 0.3 K/mcL (0.0-1.3); Monocytes % 5.3 %; Platelet Count 108 K/mcL (140-400); Red Blood Count 2.76 M/mcL (3.82-4.97); Segmented Neutrophils % 82.8 %; White Blood Count 5.1 K/mcL (4.3-11.1)
[2021-03-25 01:05] LABS: Neutrophils # 4.2 K/mcL (1.6-8.9)
[2021-03-25 01:25] LABS: Calcium 9.1 mg/dL (8.6-10.3); Potassium 3.9 mEq/L (3.5-5.1)
[2021-03-25] MEDS: Ipratropium/Albuterol Neb 3 ML IH SCH ×4 (04:07→21:17)
[2021-03-25] MEDS: *HR* Heparin 5,000 UNIT/ML VIAL SQ SCH ×3 (06:26→21:52)
[2021-03-25] MEDS: Insulin LISPRO 300 UNITS/3 ML VIAL SUBQ SCH ×3 (07:57→17:24)
[2021-03-25] MEDS: carvediloL 6.25 MG TABLET PO SCH ×2 (07:57→17:23)
[2021-03-25] MEDS: Lactobacillus 1 EACH CAP.SPRINK PO SCH ×2 (07:58→20:11)
[2021-03-25] MEDS: predniSONE 20 MG TABLET PO SCH (07:58)
[2021-03-25] MEDS: Cyanocobalamin (B-12) 1,000 MCG TABLET PO SCH (07:58)
[2021-03-25] MEDS: Chlorhexidine Rinse 15 ML MOUTHWASH MM SCH ×2 (07:58→20:11)
[2021-03-25] MEDS: Multivit/Ca/Min/Fe/FA 1 TAB TABLET PO SCH (07:58)
[2021-03-25] MEDS: Azithromycin 250 MG TABLET PO SCH (07:58)
[2021-03-25] MEDS: Albumin 25% 25gram/100mL 25 GM/100 ML IV.SOLN IVPB SCH ×2 (08:00→20:09)
[2021-03-25] MEDS: Acetaminophen 325 MG TABLET PO PRN (09:56)
[2021-03-25] MEDS: Budesonide/Formoterol 160/4.5 1 PUFF INH IH SCH ×2 (10:46→21:17)
[2021-03-25] MEDS ORDERED: Fluticasone Propionate Nasal 50 MCG/SPRAY BOTTLE NS SCH (11:00)
[2021-03-25] MEDS ORDERED: Furosemide 20 MG/2 ML VIAL IVP ONE (13:26)
[2021-03-25] MEDS: Loratadine 10 MG TABLET PO SCH (13:28)
[2021-03-25] MEDS: Latanoprost 2.5 ML BOTTLE BOTH EYES SCH (20:07)
[2021-03-25] MEDS: Fluticasone Propionate Nasal 50 MCG/SPRAY BOTTLE NS SCH (20:10)
[2021-03-26 00:50] LABS: Basophils % 0.2 %; Eosinophils % 0.2 %; Platelet Count 114 K/mcL (140-400)
[2021-03-26 00:52] LABS: Hematocrit 27.2 % (35.3-44.9); Hemoglobin 7.8 g/dL (11.5-15.4); Immature Granulocytes % 2.6 % (0-4); Lymphocytes # 0.5 K/mcL (0.6-4.6); Lymphocytes % 8.2 %; Mean Corpuscular HGB Conc 28.7 g/dL (31.6-35.5); Mean Corpuscular Hemoglobin 27.9 pg (28.0-33.3); Mean Corpuscular Volume 97.1 fL (83.0-100.0); Mean Platelet Volume 11.6 fL (9.4-12.4); Monocytes # 0.4 K/mcL (0.0-1.3); Monocytes % 6.5 %; Neutrophils # 4.8 K/mcL (1.6-8.9); Red Cell Distribution Width 16.4 % (11.5-14.5); Segmented Neutrophils % 82.3 %; White Blood Count 5.8 K/mcL (4.3-11.1)
[2021-03-26 01:26] LABS: Calcium 9.6 mg/dL (8.6-10.3)
[2021-03-26 01:48] LABS: Hypochromasia Present (Not Present); Platelet Estimate Slight Decrease (Normal)
[2021-03-26] MEDS: Ipratropium/Albuterol Neb 3 ML IH SCH ×4 (03:43→22:47)
[2021-03-26] MEDS: *HR* Heparin 5,000 UNIT/ML VIAL SQ SCH ×3 (06:00→20:33)
[2021-03-26] MEDS: Budesonide/Formoterol 160/4.5 1 PUFF INH IH SCH ×2 (07:45→22:46)
[2021-03-26] MEDS: Insulin LISPRO 300 UNITS/3 ML VIAL SUBQ SCH ×3 (09:08→17:19)
[2021-03-26] MEDS: carvediloL 6.25 MG TABLET PO SCH ×2 (09:09→17:19)
[2021-03-26] MEDS: Lactobacillus 1 EACH CAP.SPRINK PO SCH ×2 (09:09→20:33)
[2021-03-26] MEDS: Loratadine 10 MG TABLET PO SCH (09:09)
[2021-03-26] MEDS: Chlorhexidine Rinse 15 ML MOUTHWASH MM SCH ×2 (09:09→20:32)
[2021-03-26] MEDS: Multivit/Ca/Min/Fe/FA 1 TAB TABLET PO SCH (09:10)
[2021-03-26] MEDS: Cyanocobalamin (B-12) 1,000 MCG TABLET PO SCH (09:10)
[2021-03-26] MEDS: Fluticasone Propionate Nasal 50 MCG/SPRAY BOTTLE NS SCH (09:10)
[2021-03-26] MEDS: predniSONE 20 MG TABLET PO SCH (09:16)
[2021-03-26] MEDS: Albumin 25% 25gram/100mL 25 GM/100 ML IV.SOLN IVPB SCH ×2 (09:17→20:32)
[2021-03-26] MEDS ORDERED: Furosemide 20 MG/2 ML VIAL IVP ONE (11:35)
[2021-03-26] MEDS: Acetaminophen 325 MG TABLET PO PRN ×2 (11:53→21:48)
[2021-03-26] MEDS ORDERED: Magnesium Oxide 400 MG TABLET PO ONE (11:55)
[2021-03-26] MEDS ORDERED: Furosemide 40 MG/4 ML VIAL IVP SCH (12:45)
[2021-03-26] MEDS ORDERED: acetaZOLAMIDE 250 MG TABLET PO SCH (15:00)
[2021-03-27 01:03] LABS: Calcium 10.1 mg/dL (8.6-10.3); Potassium 4.1 mEq/L (3.5-5.1)
[2021-03-27] MEDS: Ipratropium/Albuterol Neb 3 ML IH SCH ×4 (03:39→21:51)
[2021-03-27] MEDS: *HR* Heparin 5,000 UNIT/ML VIAL SQ SCH ×3 (05:05→23:13)
[2021-03-27 05:31] LABS: Basophils % 0.1 %; Hematocrit 28.6 % (35.3-44.9); Hemoglobin 8.4 g/dL (11.5-15.4); Lymphocytes # 0.5 K/mcL (0.6-4.6); Lymphocytes % 6.3 %; Mean Corpuscular HGB Conc 29.4 g/dL (31.6-35.5); Mean Corpuscular Hemoglobin 29.3 pg (28.0-33.3); Mean Corpuscular Volume 99.7 fL (83.0-100.0); Mean Platelet Volume 12.1 fL (9.4-12.4); Monocytes # 0.4 K/mcL (0.0-1.3); Monocytes % 4.9 %; Neutrophils # 6.2 K/mcL (1.6-8.9); Platelet Count 119 K/mcL (140-400); Red Blood Count 2.87 M/mcL (3.82-4.97); Red Cell Distribution Width 16.4 % (11.5-14.5); Segmented Neutrophils % 86.7 %; White Blood Count 7.1 K/mcL (4.3-11.1)
[2021-03-27] MEDS: Budesonide/Formoterol 160/4.5 1 PUFF INH IH SCH ×2 (07:22→21:51)
[2021-03-27] MEDS: Insulin LISPRO 300 UNITS/3 ML VIAL SUBQ SCH ×3 (07:30→17:34)
[2021-03-27] MEDS ORDERED: Furosemide 20 MG/2 ML VIAL IVP ONE (09:28)
[2021-03-27] MEDS: Albumin 25% 25gram/100mL 25 GM/100 ML IV.SOLN IVPB SCH ×2 (10:29→23:17)
[2021-03-27] MEDS: carvediloL 6.25 MG TABLET PO SCH ×2 (10:29→16:25)
[2021-03-27] MEDS: Lactobacillus 1 EACH CAP.SPRINK PO SCH ×2 (10:29→23:16)
[2021-03-27] MEDS: Loratadine 10 MG TABLET PO SCH (10:30)
[2021-03-27] MEDS: Chlorhexidine Rinse 15 ML MOUTHWASH MM SCH ×2 (10:30→23:15)
[2021-03-27] MEDS: Cyanocobalamin (B-12) 1,000 MCG TABLET PO SCH (10:30)
[2021-03-27] MEDS: Multivit/Ca/Min/Fe/FA 1 TAB TABLET PO SCH (10:30)
[2021-03-27] MEDS: Fluticasone Propionate Nasal 50 MCG/SPRAY BOTTLE NS SCH (10:54)
[2021-03-27 11:47] LABS: ABG Base Excess 16 mEq/L (-2 to 3); ABG HCO3 44 mEq/L (21-27); ABG Oxygen Saturation 87 % (95-98); ABG PCO2 83 mmHg (35-45); ABG PH 7.34 pH Units (7.32-7.45); ABG PO2 61 mmHg (85-104); ABG TCO2 47 mEq/L (20-26)
[2021-03-27] MEDS: predniSONE 20 MG TABLET PO SCH (13:18)
[2021-03-27] MEDS: Acetaminophen 325 MG TABLET PO PRN (13:18)
[2021-03-27] MEDS ORDERED: acetaZOLAMIDE 500 MG in Water for inj. (sterile) 5 ML IVP ONE (13:27)
[2021-03-27] MEDS ORDERED: Magnesium Oxide 400 MG TABLET PO ONE (15:30)
[2021-03-27] MEDS ORDERED: Furosemide 40 MG/4 ML VIAL IVP ONE (16:00)
[2021-03-27] MEDS: rOPINIRole 1 MG TABLET PO SCH ×2 (23:12→23:59)
[2021-03-28] MEDS: Ipratropium/Albuterol Neb 3 ML IH SCH ×4 (03:50→20:24)
[2021-03-28 04:06] LABS: Basophils % 0.2 %; Eosinophils % 0.2 %; Hemoglobin 7.9 g/dL (11.5-15.4); Mean Platelet Volume 11.7 fL (9.4-12.4)
[2021-03-28 04:08] LABS: Hematocrit 27.3 % (35.3-44.9); Immature Granulocytes % 1.6 % (0-4); Immature Platelets 7.8 % (1.1-6.1); Lymphocytes # 0.4 K/mcL (0.6-4.6); Lymphocytes % 6.7 %; Mean Corpuscular HGB Conc 28.9 g/dL (31.6-35.5); Mean Corpuscular Hemoglobin 28.4 pg (28.0-33.3); Mean Corpuscular Volume 98.2 fL (83.0-100.0); Monocytes # 0.3 K/mcL (0.0-1.3); Monocytes % 4.2 %; Neutrophils # 5.4 K/mcL (1.6-8.9); Nucleated Red Blood Cells 0.3 /100 WBC (0); Platelet Count 114 K/mcL (140-400); Red Blood Count 2.78 M/mcL (3.82-4.97); Red Cell Distribution Width 16.5 % (11.5-14.5); Segmented Neutrophils % 87.1 %; White Blood Count 6.2 K/mcL (4.3-11.1)
[2021-03-28 04:54] LABS: Hypochromasia Present (Not Present); Platelet Estimate Decreased (Normal)
[2021-03-28 05:00] LABS: Calcium 10.1 mg/dL (8.6-10.3); Potassium 3.8 mEq/L (3.5-5.1)
[2021-03-28] MEDS: *HR* Heparin 5,000 UNIT/ML VIAL SQ SCH ×3 (06:13→23:08)
[2021-03-28] MEDS: Budesonide/Formoterol 160/4.5 1 PUFF INH IH SCH ×2 (07:23→20:25)
[2021-03-28] MEDS: Multivit/Ca/Min/Fe/FA 1 TAB TABLET PO SCH (08:38)
[2021-03-28] MEDS: Cyanocobalamin (B-12) 1,000 MCG TABLET PO SCH (08:38)
[2021-03-28] MEDS: Lactobacillus 1 EACH CAP.SPRINK PO SCH ×2 (08:38→19:53)
[2021-03-28] MEDS: Loratadine 10 MG TABLET PO SCH (08:38)
[2021-03-28] MEDS: predniSONE 20 MG TABLET PO SCH (08:38)
[2021-03-28] MEDS: carvediloL 6.25 MG TABLET PO SCH ×2 (08:38→16:09)
[2021-03-28] MEDS: Albumin 25% 25gram/100mL 25 GM/100 ML IV.SOLN IVPB SCH ×2 (08:39→19:55)
[2021-03-28] MEDS: Insulin LISPRO 300 UNITS/3 ML VIAL SUBQ SCH ×3 (08:42→16:09)
[2021-03-28] MEDS: Chlorhexidine Rinse 15 ML MOUTHWASH MM SCH ×2 (08:43→19:53)
[2021-03-28] MEDS: Fluticasone Propionate Nasal 50 MCG/SPRAY BOTTLE NS SCH (08:43)
[2021-03-28] MEDS ORDERED: Saliva Stimulant 44.3ml BOTTLE PO PRN (09:46)
[2021-03-28] MEDS ORDERED: acetaZOLAMIDE 250 MG in Water for inj. (sterile) 2.5 ML IVP ONE (13:00)
[2021-03-28] MEDS: rOPINIRole 1 MG TABLET PO SCH ×2 (19:53→23:09)
[2021-03-29] MEDS: Ipratropium/Albuterol Neb 3 ML IH SCH ×4 (03:40→20:26)
[2021-03-29] MEDS: *HR* Heparin 5,000 UNIT/ML VIAL SQ SCH ×3 (04:54→22:31)
[2021-03-29 05:20] LABS: Basophils % 0.2 %; Hemoglobin 7.5 g/dL (11.5-15.4); Mean Platelet Volume 11.4 fL (9.4-12.4)
[2021-03-29 05:21] LABS: Eosinophils # 0.1 K/mcL (0.0-0.6); Hematocrit 27.2 % (35.3-44.9); Immature Granulocytes % 1.6 % (0-4); Immature Platelets 7.3 % (1.1-6.1); Lymphocytes # 0.8 K/mcL (0.6-4.6); Lymphocytes % 12.9 %; Mean Corpuscular HGB Conc 27.6 g/dL (31.6-35.5); Mean Corpuscular Hemoglobin 28.2 pg (28.0-33.3); Mean Corpuscular Volume 102.3 fL (83.0-100.0); Monocytes # 0.4 K/mcL (0.0-1.3); Monocytes % 6.1 %; Neutrophils # 4.8 K/mcL (1.6-8.9); Platelet Count 115 K/mcL (140-400); Red Blood Count 2.66 M/mcL (3.82-4.97); Red Cell Distribution Width 16.8 % (11.5-14.5); Segmented Neutrophils % 78.2 %; White Blood Count 6.1 K/mcL (4.3-11.1)
[2021-03-29 06:19] LABS: Hypochromasia Present (Not Present); Platelet Estimate Slight Decrease (Normal)
[2021-03-29 07:05] LABS: BUN/Creatinine Ratio 36 (6-26); Blood Urea Nitrogen 46 mg/dL (8-23); Calcium 9.9 mg/dL (8.6-10.3); Carbon Dioxide > 45 mEq/L (23-29); Chloride 95 mEq/L (98-107); Glucose 108 mg/dL (70-105); Osmolality,Calculated 312 (280-300); Potassium 3.5 mEq/L (3.5-5.1); Sodium 145 mEq/L (136-145); eGFR For African Americans 51 (> 60); eGFR For Non-African Americans 42 (> 60)
[2021-03-29] MEDS: Budesonide/Formoterol 160/4.5 1 PUFF INH IH SCH ×2 (07:39→20:26)
[2021-03-29] MEDS: Cyanocobalamin (B-12) 1,000 MCG TABLET PO SCH (07:44)
[2021-03-29] MEDS: Chlorhexidine Rinse 15 ML MOUTHWASH MM SCH ×2 (07:44→19:52)
[2021-03-29] MEDS: predniSONE 20 MG TABLET PO SCH (07:44)
[2021-03-29] MEDS: Loratadine 10 MG TABLET PO SCH (07:44)
[2021-03-29] MEDS: Lactobacillus 1 EACH CAP.SPRINK PO SCH ×2 (07:44→19:52)
[2021-03-29] MEDS: Multivit/Ca/Min/Fe/FA 1 TAB TABLET PO SCH (07:44)
[2021-03-29] MEDS: carvediloL 6.25 MG TABLET PO SCH ×2 (07:44→16:52)
[2021-03-29] MEDS: Albumin 25% 25gram/100mL 25 GM/100 ML IV.SOLN IVPB SCH ×2 (07:45→19:51)
[2021-03-29] MEDS: Fluticasone Propionate Nasal 50 MCG/SPRAY BOTTLE NS SCH (07:45)
[2021-03-29] MEDS: Insulin LISPRO 300 UNITS/3 ML VIAL SUBQ SCH ×3 (07:47→17:08)
[2021-03-29] MEDS ORDERED: acetaZOLAMIDE 250 MG in Water for inj. (sterile) 2.5 ML IVP ONE (09:44)
[2021-03-29] MEDS ORDERED: *HR* LORazepam 2 MG/ML VIAL IVP PRN (10:52)
[2021-03-29] MEDS: rOPINIRole 1 MG TABLET PO SCH ×2 (19:52→22:32)
[2021-03-30] MEDS: Ipratropium/Albuterol Neb 3 ML IH SCH ×4 (03:44→20:05)
[2021-03-30] MEDS: *HR* Heparin 5,000 UNIT/ML VIAL SQ SCH ×3 (05:15→22:54)
[2021-03-30 05:43] LABS: Basophils % 0.2 %; Eosinophils % 1.4 %
[2021-03-30 05:45] LABS: Eosinophils # 0.1 K/mcL (0.0-0.6); Hematocrit 27.1 % (35.3-44.9); Hemoglobin 7.4 g/dL (11.5-15.4); Red Blood Count 2.61 M/mcL (3.82-4.97); White Blood Count 6.6 K/mcL (4.3-11.1)
[2021-03-30 05:46] LABS: Immature Platelets 6.3 % (1.1-6.1); Lymphocytes % 11.3 %; Mean Corpuscular HGB Conc 27.3 g/dL (31.6-35.5); Mean Corpuscular Hemoglobin 28.4 pg (28.0-33.3); Mean Corpuscular Volume 103.8 fL (83.0-100.0); Mean Platelet Volume 11.4 fL (9.4-12.4); Monocytes # 0.4 K/mcL (0.0-1.3); Monocytes % 6.2 %; Neutrophils # 5.2 K/mcL (1.6-8.9); Nucleated Red Blood Cells 0.3 /100 WBC (0); Platelet Count 118 K/mcL (140-400); Segmented Neutrophils % 78.9 %
[2021-03-30 05:47] LABS: Lymphocytes # 0.8 K/mcL (0.6-4.6)
[2021-03-30 06:21] LABS: Anisocytosis 1+ (Not Present); Macrocytosis Present (Not Present); Platelet Estimate Slight Decrease (Normal)
[2021-03-30 06:50] LABS: BUN/Creatinine Ratio 35 (6-26); Blood Urea Nitrogen 46 mg/dL (8-23); Calcium 10.1 mg/dL (8.6-10.3); Carbon Dioxide > 45 mEq/L (23-29); Chloride 96 mEq/L (98-107); Glucose 115 mg/dL (70-105); Osmolality,Calculated 313 (280-300); Potassium 3.8 mEq/L (3.5-5.1); Sodium 145 mEq/L (136-145); eGFR For African Americans 49 (> 60); eGFR For Non-African Americans 41 (> 60)
[2021-03-30] MEDS: Insulin LISPRO 300 UNITS/3 ML VIAL SUBQ SCH ×3 (07:39→16:54)
[2021-03-30] MEDS: predniSONE 20 MG TABLET PO SCH (07:44)
[2021-03-30] MEDS: Loratadine 10 MG TABLET PO SCH (07:44)
[2021-03-30] MEDS: Cyanocobalamin (B-12) 1,000 MCG TABLET PO SCH (07:44)
[2021-03-30] MEDS: carvediloL 6.25 MG TABLET PO SCH ×2 (07:44→16:54)
[2021-03-30] MEDS: Fluticasone Propionate Nasal 50 MCG/SPRAY BOTTLE NS SCH (07:45)
[2021-03-30] MEDS: Multivit/Ca/Min/Fe/FA 1 TAB TABLET PO SCH (07:45)
[2021-03-30] MEDS: Albumin 25% 25gram/100mL 25 GM/100 ML IV.SOLN IVPB SCH ×2 (07:45→15:50)
[2021-03-30] MEDS: Lactobacillus 1 EACH CAP.SPRINK PO SCH ×2 (07:45→20:16)
[2021-03-30] MEDS: Chlorhexidine Rinse 15 ML MOUTHWASH MM SCH ×2 (07:45→20:16)
[2021-03-30] MEDS: Acetaminophen 325 MG TABLET PO PRN ×2 (07:47→16:00)
[2021-03-30] MEDS: Budesonide/Formoterol 160/4.5 1 PUFF INH IH SCH ×2 (10:48→20:04)
[2021-03-30] MEDS: acetaZOLAMIDE 250 MG in Water for inj. (sterile) 2.5 ML IVP SCH ×2 (11:58→15:50)
[2021-03-30 15:42] LABS: ABG Base Excess 13 mEq/L (-2 to 3); ABG HCO3 43 mEq/L (21-27); ABG Oxygen Saturation 83 % (95-98); ABG PCO2 100 mmHg (35-45); ABG PH 7.24 pH Units (7.32-7.45); ABG PO2 60 mmHg (85-104); ABG TCO2 47 mEq/L (20-26)
[2021-03-30] MEDS: rOPINIRole 1 MG TABLET PO SCH ×2 (20:16→22:55)
[2021-03-31] MEDS: Albumin 25% 25gram/100mL 25 GM/100 ML IV.SOLN IVPB SCH ×2 (02:40→13:52)
[2021-03-31 03:37] LABS: Calcium 10.4 mg/dL (8.6-10.3); Magnesium 1.7 mg/dL (1.6-2.6); Phosphorous 3.9 mg/dL (2.7-4.5); Potassium 4.3 mEq/L (3.5-5.1)
[2021-03-31 03:42] LABS: Basophils % 0.1 %; Eosinophils # 0.1 K/mcL (0.0-0.6); Eosinophils % 0.9 %; Hematocrit 28.6 % (35.3-44.9); Hemoglobin 7.8 g/dL (11.5-15.4); Immature Granulocytes % 1.6 % (0-4); Lymphocytes # 0.8 K/mcL (0.6-4.6); Mean Corpuscular HGB Conc 27.3 g/dL (31.6-35.5); Mean Corpuscular Hemoglobin 28.7 pg (28.0-33.3); Mean Corpuscular Volume 105.1 fL (83.0-100.0); Mean Platelet Volume 11.6 fL (9.4-12.4); Monocytes # 0.3 K/mcL (0.0-1.3); Monocytes % 4.6 %; Nucleated Red Blood Cells 0.3 /100 WBC (0); Platelet Count 105 K/mcL (140-400); Red Blood Count 2.72 M/mcL (3.82-4.97); Segmented Neutrophils % 81.8 %; White Blood Count 6.9 K/mcL (4.3-11.1)
[2021-03-31 03:46] LABS: Neutrophils # 5.6 K/mcL (1.6-8.9)
[2021-03-31] MEDS: Ipratropium/Albuterol Neb 3 ML IH SCH ×4 (04:18→20:23)
[2021-03-31 04:24] LABS: Anisocytosis 1+ (Not Present); Hypochromasia Present (Not Present); Platelet Estimate Slight Decrease (Normal)
[2021-03-31] MEDS: *HR* Heparin 5,000 UNIT/ML VIAL SQ SCH ×3 (05:52→21:53)
[2021-03-31] MEDS: Multivit/Ca/Min/Fe/FA 1 TAB TABLET PO SCH (07:39)
[2021-03-31] MEDS: predniSONE 20 MG TABLET PO SCH (07:40)
[2021-03-31] MEDS: Acetaminophen 325 MG TABLET PO PRN (07:40)
[2021-03-31] MEDS: Loratadine 10 MG TABLET PO SCH (07:40)
[2021-03-31] MEDS: Lactobacillus 1 EACH CAP.SPRINK PO SCH ×2 (07:40→21:52)
[2021-03-31] MEDS: Chlorhexidine Rinse 15 ML MOUTHWASH MM SCH ×2 (07:40→21:52)
[2021-03-31] MEDS: Cyanocobalamin (B-12) 1,000 MCG TABLET PO SCH (07:40)
[2021-03-31] MEDS: carvediloL 6.25 MG TABLET PO SCH ×2 (07:40→17:27)
[2021-03-31] MEDS: Fluticasone Propionate Nasal 50 MCG/SPRAY BOTTLE NS SCH (07:40)
[2021-03-31] MEDS: Insulin LISPRO 300 UNITS/3 ML VIAL SUBQ SCH ×3 (07:42→17:28)
[2021-03-31] MEDS: Budesonide/Formoterol 160/4.5 1 PUFF INH IH SCH ×2 (08:04→20:24)
[2021-03-31] MEDS ORDERED: acetaZOLAMIDE 250 MG in Water for inj. (sterile) 2.5 ML IVP ONE (13:15)
[2021-03-31 14:51] LABS: ABG Base Excess 13 mEq/L (-2 to 3); ABG HCO3 44 mEq/L (21-27); ABG Oxygen Saturation 85 % (95-98); ABG PCO2 111 mmHg (35-45); ABG PH 7.21 pH Units (7.32-7.45); ABG PO2 65 mmHg (85-104); ABG TCO2 47 mEq/L (20-26)
[2021-03-31] MEDS ORDERED: Magnesium Oxide 400 MG TABLET PO ONE (16:46)
[2021-03-31 20:32] LABS: ABG Base Excess 16 mEq/L (-2 to 3); ABG HCO3 48 mEq/L (21-27); ABG Oxygen Saturation 95 % (95-98); ABG PCO2 122 mmHg (35-45); ABG PO2 103 mmHg (85-104); ABG TCO2 > 50 mEq/L (20-26)
[2021-03-31] MEDS: rOPINIRole 1 MG TABLET PO SCH (21:52)
[2021-04-01] MEDS: rOPINIRole 1 MG TABLET PO SCH ×3 (00:16→22:46)
[2021-04-01 02:26] LABS: Basophils % 0.2 %; Hemoglobin 7.5 g/dL (11.5-15.4); Mean Platelet Volume 11.3 fL (9.4-12.4)
[2021-04-01 02:27] LABS: White Blood Count 6.3 K/mcL (4.3-11.1)
[2021-04-01 02:28] LABS: Eosinophils # 0.1 K/mcL (0.0-0.6); Eosinophils % 1.3 %; Hematocrit 27.5 % (35.3-44.9); Immature Granulocytes % 1.4 % (0-4); Lymphocytes # 0.7 K/mcL (0.6-4.6); Mean Corpuscular HGB Conc 27.3 g/dL (31.6-35.5); Mean Corpuscular Hemoglobin 28.2 pg (28.0-33.3); Mean Corpuscular Volume 103.4 fL (83.0-100.0); Monocytes # 0.4 K/mcL (0.0-1.3); Monocytes % 5.8 %; Neutrophils # 5.1 K/mcL (1.6-8.9); Nucleated Red Blood Cells 0.3 /100 WBC (0); Platelet Count 100 K/mcL (140-400); Red Blood Count 2.66 M/mcL (3.82-4.97); Segmented Neutrophils % 80.3 %
[2021-04-01 02:48] LABS: Calcium 10.7 mg/dL (8.6-10.3); Potassium 4.1 mEq/L (3.5-5.1)
[2021-04-01 03:35] LABS: Hypochromasia Present (Not Present); Stomatocytes 1+ (Not Present)
[2021-04-01 03:36] LABS: Platelet Estimate Slight Decrease (Normal)
[2021-04-01] MEDS: Ipratropium/Albuterol Neb 3 ML IH SCH ×4 (03:46→20:21)
[2021-04-01 04:15] LABS: ABG Base Excess 16 mEq/L (-2 to 3); ABG HCO3 46 mEq/L (21-27); ABG Oxygen Saturation 91 % (95-98); ABG PCO2 104 mmHg (35-45); ABG PH 7.25 pH Units (7.32-7.45); ABG PO2 76 mmHg (85-104); ABG TCO2 49 mEq/L (20-26); Blood Gas VT 500 cc
[2021-04-01] MEDS: *HR* Heparin 5,000 UNIT/ML VIAL SQ SCH ×3 (06:02→22:45)
[2021-04-01] MEDS: Chlorhexidine Rinse 15 ML MOUTHWASH MM SCH ×3 (07:46→23:03)
[2021-04-01] MEDS: Insulin LISPRO 300 UNITS/3 ML VIAL SUBQ SCH ×3 (07:47→19:32)
[2021-04-01] MEDS: Multivit/Ca/Min/Fe/FA 1 TAB TABLET PO SCH (07:47)
[2021-04-01] MEDS: Cyanocobalamin (B-12) 1,000 MCG TABLET PO SCH (07:47)
[2021-04-01] MEDS: Loratadine 10 MG TABLET PO SCH (07:47)
[2021-04-01] MEDS: carvediloL 6.25 MG TABLET PO SCH ×2 (07:47→16:36)
[2021-04-01] MEDS: Fluticasone Propionate Nasal 50 MCG/SPRAY BOTTLE NS SCH (07:48)
[2021-04-01] MEDS: Lactobacillus 1 EACH CAP.SPRINK PO SCH ×2 (07:48→22:46)
[2021-04-01] MEDS: predniSONE 20 MG TABLET PO SCH (07:48)
[2021-04-01] MEDS: Budesonide/Formoterol 160/4.5 1 PUFF INH IH SCH ×2 (10:32→20:21)
[2021-04-01 12:29] LABS: ABG Base Excess 14 mEq/L (-2 to 3); ABG HCO3 44 mEq/L (21-27); ABG Oxygen Saturation 95 % (95-98); ABG PCO2 100 mmHg (35-45); ABG PH 7.25 pH Units (7.32-7.45); ABG PO2 97 mmHg (85-104); ABG TCO2 47 mEq/L (20-26)
[2021-04-01] MEDS ORDERED: acetaZOLAMIDE 250 MG in Water for inj. (sterile) 2.5 ML IVP ONE (14:48)
[2021-04-02] MEDS: Ipratropium/Albuterol Neb 3 ML IH SCH ×4 (04:05→20:03)
[2021-04-02 04:09] LABS: Basophils % 0.2 %; Mean Corpuscular Volume 104.6 fL (83.0-100.0); Red Cell Distribution Width 17.2 % (11.5-14.5)
[2021-04-02 04:11] LABS: Eosinophils # 0.1 K/mcL (0.0-0.6); Eosinophils % 2.4 %; Hematocrit 27.2 % (35.3-44.9); Hemoglobin 7.4 g/dL (11.5-15.4); Immature Granulocytes % 2.2 % (0-4); Immature Platelets 6.3 % (1.1-6.1); Lymphocytes # 0.7 K/mcL (0.6-4.6); Lymphocytes % 12.3 %; Mean Corpuscular HGB Conc 27.2 g/dL (31.6-35.5); Mean Corpuscular Hemoglobin 28.5 pg (28.0-33.3); Mean Platelet Volume 11.3 fL (9.4-12.4); Monocytes # 0.3 K/mcL (0.0-1.3); Monocytes % 5.7 %; Neutrophils # 4.6 K/mcL (1.6-8.9); Segmented Neutrophils % 77.2 %; White Blood Count 5.9 K/mcL (4.3-11.1)
[2021-04-02 04:17] LABS: Platelet Count 86 K/mcL (140-400)
[2021-04-02 04:18] LABS: Hypochromasia Present (Not Present); Platelet Estimate Slight Decrease (Normal)
[2021-04-02 04:43] LABS: Calcium 10.1 mg/dL (8.6-10.3); Potassium 4.1 mEq/L (3.5-5.1)
[2021-04-02] MEDS: *HR* Heparin 5,000 UNIT/ML VIAL SQ SCH ×3 (06:35→22:27)
[2021-04-02] MEDS: Insulin LISPRO 300 UNITS/3 ML VIAL SUBQ SCH ×3 (07:23→16:53)
[2021-04-02] MEDS: Chlorhexidine Rinse 15 ML MOUTHWASH MM SCH ×2 (08:23→20:06)
[2021-04-02] MEDS: carvediloL 6.25 MG TABLET PO SCH ×2 (08:24→16:55)
[2021-04-02] MEDS: Loratadine 10 MG TABLET PO SCH (08:24)
[2021-04-02] MEDS: Fluticasone Propionate Nasal 50 MCG/SPRAY BOTTLE NS SCH (08:24)
[2021-04-02] MEDS: Cyanocobalamin (B-12) 1,000 MCG TABLET PO SCH (08:24)
[2021-04-02] MEDS: Multivit/Ca/Min/Fe/FA 1 TAB TABLET PO SCH (08:24)
[2021-04-02] MEDS: rOPINIRole 1 MG TABLET PO SCH ×2 (08:24→20:06)
[2021-04-02] MEDS: Lactobacillus 1 EACH CAP.SPRINK PO SCH ×2 (08:24→20:07)
[2021-04-02] MEDS: Budesonide/Formoterol 160/4.5 1 PUFF INH IH SCH ×2 (11:00→20:03)
[2021-04-02] MEDS: acetaZOLAMIDE 250 MG in Water for inj. (sterile) 2.5 ML IVP SCH ×3 (12:02→20:09)
[2021-04-02] MEDS: Furosemide 40 MG/4 ML VIAL IVP SCH ×2 (12:07→20:11)
[2021-04-02 14:50] LABS: ABG Base Excess 16 mEq/L (-2 to 3); ABG HCO3 45 mEq/L (21-27); ABG Oxygen Saturation 92 % (95-98); ABG PCO2 89 mmHg (35-45); ABG PH 7.31 pH Units (7.32-7.45); ABG PO2 73 mmHg (85-104); ABG TCO2 48 mEq/L (20-26); Blood Gas VT 500 cc
[2021-04-02] MEDS: rOPINIRole 1 MG TABLET PO PRN (20:07)
[2021-04-03] MEDS: Ipratropium/Albuterol Neb 3 ML IH SCH ×4 (03:43→20:28)
[2021-04-03] MEDS: *HR* Heparin 5,000 UNIT/ML VIAL SQ SCH ×3 (05:39→21:33)
[2021-04-03 06:02] LABS: Immature Granulocytes % 1.3 % (0-4); Red Cell Distribution Width 17.3 % (11.5-14.5)
[2021-04-03 06:04] LABS: Basophils % 0.4 %; Eosinophils # 0.1 K/mcL (0.0-0.6); Eosinophils % 2.4 %; Hematocrit 26.1 % (35.3-44.9); Hemoglobin 7.2 g/dL (11.5-15.4); Immature Platelets 5.6 % (1.1-6.1); Lymphocytes # 0.7 K/mcL (0.6-4.6); Lymphocytes % 12.7 %; Mean Corpuscular HGB Conc 27.6 g/dL (31.6-35.5); Mean Corpuscular Hemoglobin 28.5 pg (28.0-33.3); Mean Corpuscular Volume 103.2 fL (83.0-100.0); Mean Platelet Volume 11.4 fL (9.4-12.4); Monocytes # 0.3 K/mcL (0.0-1.3); Monocytes % 5.3 %; Neutrophils # 4.3 K/mcL (1.6-8.9); Red Blood Count 2.53 M/mcL (3.82-4.97); Segmented Neutrophils % 77.9 %; White Blood Count 5.5 K/mcL (4.3-11.1)
[2021-04-03 06:07] LABS: Platelet Count 84 K/mcL (140-400)
[2021-04-03 06:23] LABS: Anisocytosis 1+ (Not Present); Hypochromasia Present (Not Present); Microcytosis Present (Not Present); Platelet Estimate Slight Decrease (Normal)
[2021-04-03] MEDS: Insulin LISPRO 300 UNITS/3 ML VIAL SUBQ SCH ×3 (08:35→16:32)
[2021-04-03] MEDS: Lactobacillus 1 EACH CAP.SPRINK PO SCH ×2 (08:56→21:33)
[2021-04-03] MEDS: Multivit/Ca/Min/Fe/FA 1 TAB TABLET PO SCH (08:56)
[2021-04-03] MEDS: Cyanocobalamin (B-12) 1,000 MCG TABLET PO SCH (08:56)
[2021-04-03] MEDS: Chlorhexidine Rinse 15 ML MOUTHWASH MM SCH ×2 (08:56→21:33)
[2021-04-03] MEDS: Loratadine 10 MG TABLET PO SCH (08:56)
[2021-04-03] MEDS: Fluticasone Propionate Nasal 50 MCG/SPRAY BOTTLE NS SCH (09:02)
[2021-04-03] MEDS: carvediloL 6.25 MG TABLET PO SCH ×2 (09:03→17:02)
[2021-04-03] MEDS: Furosemide 40 MG/4 ML VIAL IVP SCH (09:03)
[2021-04-03] MEDS: Budesonide/Formoterol 160/4.5 1 PUFF INH IH SCH ×2 (10:13→20:28)
[2021-04-03 11:21] LABS: Calcium 10.1 mg/dL (8.6-10.3); Potassium 3.9 mEq/L (3.5-5.1)
[2021-04-03] MEDS: rOPINIRole 1 MG TABLET PO PRN (17:02)
[2021-04-03] MEDS: rOPINIRole 1 MG TABLET PO SCH (21:33)
[2021-04-04 03:33] LABS: Basophils % 0.4 %; Eosinophils # 0.1 K/mcL (0.0-0.6); Hematocrit 24.4 % (35.3-44.9); Immature Granulocytes % 1.1 % (0-4); Immature Platelets 5.7 % (1.1-6.1); Lymphocytes # 0.7 K/mcL (0.6-4.6); Lymphocytes % 15.4 %; Mean Corpuscular HGB Conc 28.7 g/dL (31.6-35.5); Mean Corpuscular Volume 101.2 fL (83.0-100.0); Mean Platelet Volume 11.2 fL (9.4-12.4); Monocytes # 0.3 K/mcL (0.0-1.3); Monocytes % 6.2 %; Neutrophils # 3.5 K/mcL (1.6-8.9); Red Blood Count 2.41 M/mcL (3.82-4.97); Red Cell Distribution Width 17.2 % (11.5-14.5); Segmented Neutrophils % 73.9 %; White Blood Count 4.7 K/mcL (4.3-11.1)
[2021-04-04 03:35] LABS: Platelet Count 76 K/mcL (140-400)
[2021-04-04 03:48] LABS: Anisocytosis 1+ (Not Present); Macrocytosis Present (Not Present); Platelet Estimate Decreased (Normal)
[2021-04-04 03:51] LABS: BUN/Creatinine Ratio 34 (6-26); Blood Urea Nitrogen 34 mg/dL (8-23); Calcium 9.3 mg/dL (8.6-10.3); Carbon Dioxide 44 mEq/L (23-29); Chloride 97 mEq/L (98-107); Glucose 111 mg/dL (70-105); Osmolality,Calculated 306 (280-300); Potassium 3.7 mEq/L (3.5-5.1); Sodium 144 mEq/L (136-145); eGFR For African Americans > 60 (> 60); eGFR For Non-African Americans 55 (> 60)
[2021-04-04 04:03] LABS: Magnesium 1.5 mg/dL (1.6-2.6)
[2021-04-04] MEDS: Ipratropium/Albuterol Neb 3 ML IH SCH ×4 (04:16→22:39)
[2021-04-04] MEDS ORDERED: Ipratropium/Albuterol Neb 3 ML ONE (04:26)
[2021-04-04] MEDS: *HR* Heparin 5,000 UNIT/ML VIAL SQ SCH (05:31)
[2021-04-04] MEDS: Insulin LISPRO 300 UNITS/3 ML VIAL SUBQ SCH ×3 (08:51→17:57)
[2021-04-04] MEDS: Chlorhexidine Rinse 15 ML MOUTHWASH MM SCH ×2 (08:52→21:43)
[2021-04-04] MEDS: Loratadine 10 MG TABLET PO SCH (08:52)
[2021-04-04] MEDS: Multivit/Ca/Min/Fe/FA 1 TAB TABLET PO SCH (08:53)
[2021-04-04] MEDS: Lactobacillus 1 EACH CAP.SPRINK PO SCH ×2 (08:53→21:44)
[2021-04-04] MEDS: Cyanocobalamin (B-12) 1,000 MCG TABLET PO SCH (08:53)
[2021-04-04] MEDS: carvediloL 6.25 MG TABLET PO SCH ×2 (08:53→18:01)
[2021-04-04] MEDS: Fluticasone Propionate Nasal 50 MCG/SPRAY BOTTLE NS SCH (08:55)
[2021-04-04] MEDS ORDERED: carvediloL 6.25 MG TABLET PO ONE (09:07)
[2021-04-04 09:31] LABS: Eosinophils % 3.3 %; Mean Corpuscular Volume 102.6 fL (83.0-100.0); Red Cell Distribution Width 17.6 % (11.5-14.5)
[2021-04-04 09:33] LABS: Basophils % 0.2 %; Eosinophils # 0.1 K/mcL (0.0-0.6); Hematocrit 23.6 % (35.3-44.9); Hemoglobin 6.5 g/dL (11.5-15.4); Immature Platelets 5.7 % (1.1-6.1); Lymphocytes # 0.6 K/mcL (0.6-4.6); Lymphocytes % 15.2 %; Mean Corpuscular HGB Conc 27.5 g/dL (31.6-35.5); Mean Corpuscular Hemoglobin 28.3 pg (28.0-33.3); Mean Platelet Volume 11.7 fL (9.4-12.4); Monocytes # 0.3 K/mcL (0.0-1.3); Monocytes % 6.2 %; Neutrophils # 3.1 K/mcL (1.6-8.9); Platelet Count 67 K/mcL (140-400); Segmented Neutrophils % 74.1 %; White Blood Count 4.2 K/mcL (4.3-11.1)
[2021-04-04 10:30] LABS: Platelet Estimate Decreased (Normal); Stomatocytes 1+ (Not Present)
[2021-04-04] MEDS: Budesonide/Formoterol 160/4.5 1 PUFF INH IH SCH ×2 (11:03→22:40)
[2021-04-04] MEDS ORDERED: 0.9 % Sodium Chloride 250 ML ONE (15:30)
[2021-04-04] MEDS: rOPINIRole 1 MG TABLET PO SCH (21:44)
[2021-04-04 21:54] LABS: Basophils % 0.2 %; Mean Corpuscular Volume 99.3 fL (83.0-100.0); Red Cell Distribution Width 17.2 % (11.5-14.5)
[2021-04-04 21:56] LABS: Eosinophils # 0.1 K/mcL (0.0-0.6); Eosinophils % 2.3 %; Hematocrit 27.1 % (35.3-44.9); Hemoglobin 7.8 g/dL (11.5-15.4); Immature Granulocytes % 1.2 % (0-4); Immature Platelets 6.5 % (1.1-6.1); Lymphocytes # 0.7 K/mcL (0.6-4.6); Lymphocytes % 12.8 %; Mean Corpuscular HGB Conc 28.8 g/dL (31.6-35.5); Mean Corpuscular Hemoglobin 28.6 pg (28.0-33.3); Mean Platelet Volume 11.1 fL (9.4-12.4); Monocytes # 0.3 K/mcL (0.0-1.3); Monocytes % 6.4 %; Red Blood Count 2.73 M/mcL (3.82-4.97); Segmented Neutrophils % 77.1 %; White Blood Count 5.2 K/mcL (4.3-11.1)
[2021-04-04 21:58] LABS: Platelet Count 80 K/mcL (140-400)
[2021-04-04] MEDS: Acetaminophen 325 MG TABLET PO PRN (22:40)
[2021-04-04 22:55] LABS: Platelet Estimate Decreased (Normal)
[2021-04-04 22:56] LABS: Anisocytosis 1+ (Not Present); Hypochromasia Present (Not Present); Stomatocytes 2+ (Not Present)
[2021-04-05] MEDS: Ipratropium/Albuterol Neb 3 ML IH SCH ×4 (04:14→20:56)
[2021-04-05 06:36] LABS: Basophils % 0.5 %; Eosinophils # 0.1 K/mcL (0.0-0.6); Eosinophils % 2.6 %; Hematocrit 26.1 % (35.3-44.9); Hemoglobin 7.5 g/dL (11.5-15.4); Immature Granulocytes % 0.8 % (0-4); Lymphocytes # 0.6 K/mcL (0.6-4.6); Lymphocytes % 15.5 %; Mean Corpuscular HGB Conc 28.7 g/dL (31.6-35.5); Mean Corpuscular Hemoglobin 29.3 pg (28.0-33.3); Mean Platelet Volume 10.8 fL (9.4-12.4); Monocytes # 0.3 K/mcL (0.0-1.3); Monocytes % 7.2 %; Neutrophils # 2.9 K/mcL (1.6-8.9); Red Blood Count 2.56 M/mcL (3.82-4.97); Red Cell Distribution Width 17.4 % (11.5-14.5); Segmented Neutrophils % 73.4 %; White Blood Count 3.9 K/mcL (4.3-11.1)
[2021-04-05 06:38] LABS: Platelet Count 72 K/mcL (140-400)
[2021-04-05 07:01] LABS: BUN/Creatinine Ratio 29 (6-26); Blood Urea Nitrogen 31 mg/dL (8-23); Calcium 9.2 mg/dL (8.6-10.3); Carbon Dioxide 44 mEq/L (23-29); Chloride 98 mEq/L (98-107); Glucose 107 mg/dL (70-105); Magnesium 1.7 mg/dL (1.6-2.6); Osmolality,Calculated 303 (280-300); Potassium 3.8 mEq/L (3.5-5.1); Sodium 143 mEq/L (136-145); eGFR For African Americans > 60 (> 60); eGFR For Non-African Americans 51 (> 60)
[2021-04-05] MEDS: Insulin LISPRO 300 UNITS/3 ML VIAL SUBQ SCH ×3 (09:43→16:41)
[2021-04-05] MEDS: Chlorhexidine Rinse 15 ML MOUTHWASH MM SCH ×2 (09:44→20:06)
[2021-04-05] MEDS: Loratadine 10 MG TABLET PO SCH (09:45)
[2021-04-05] MEDS: Multivit/Ca/Min/Fe/FA 1 TAB TABLET PO SCH (09:45)
[2021-04-05] MEDS: Lactobacillus 1 EACH CAP.SPRINK PO SCH ×2 (09:45→20:08)
[2021-04-05] MEDS: Cyanocobalamin (B-12) 1,000 MCG TABLET PO SCH (09:45)
[2021-04-05] MEDS: Fluticasone Propionate Nasal 50 MCG/SPRAY BOTTLE NS SCH (09:46)
[2021-04-05] MEDS: carvediloL 6.25 MG TABLET PO SCH ×2 (09:46→16:41)
[2021-04-05] MEDS: Budesonide/Formoterol 160/4.5 1 PUFF INH IH SCH ×2 (10:29→20:58)
[2021-04-05] MEDS: rOPINIRole 1 MG TABLET PO SCH (20:08)
[2021-04-05] MEDS: rOPINIRole 1 MG TABLET PO PRN (22:32)
[2021-04-06] MEDS: Ipratropium/Albuterol Neb 3 ML IH SCH ×4 (04:02→20:05)
[2021-04-06 06:04] LABS: Basophils % 0.2 %; Eosinophils # 0.1 K/mcL (0.0-0.6); Eosinophils % 2.7 %; Hematocrit 28.2 % (35.3-44.9); Hemoglobin 7.9 g/dL (11.5-15.4); Immature Granulocytes % 0.6 % (0-4); Immature Platelets 7.7 % (1.1-6.1); Lymphocytes # 0.8 K/mcL (0.6-4.6); Lymphocytes % 16.6 %; Mean Corpuscular Hemoglobin 28.6 pg (28.0-33.3); Mean Corpuscular Volume 102.2 fL (83.0-100.0); Mean Platelet Volume 11.6 fL (9.4-12.4); Monocytes # 0.3 K/mcL (0.0-1.3); Neutrophils # 3.5 K/mcL (1.6-8.9); Red Blood Count 2.76 M/mcL (3.82-4.97); Red Cell Distribution Width 17.4 % (11.5-14.5); Segmented Neutrophils % 72.9 %; White Blood Count 4.8 K/mcL (4.3-11.1)
[2021-04-06 06:12] LABS: BUN/Creatinine Ratio 29 (6-26); Blood Urea Nitrogen 28 mg/dL (8-23); Calcium 9.5 mg/dL (8.6-10.3); Carbon Dioxide 42 mEq/L (23-29); Chloride 99 mEq/L (98-107); Glucose 110 mg/dL (70-105); Osmolality,Calculated 302 (280-300); Potassium 4.3 mEq/L (3.5-5.1); Sodium 143 mEq/L (136-145); eGFR For African Americans > 60 (> 60); eGFR For Non-African Americans 57 (> 60)
[2021-04-06 06:20] LABS: Platelet Count 75 K/mcL (140-400)
[2021-04-06 07:10] LABS: Platelet Estimate Slight Decrease (Normal)
[2021-04-06] MEDS: Budesonide/Formoterol 160/4.5 1 PUFF INH IH SCH ×2 (07:41→20:04)
[2021-04-06] MEDS: Lactobacillus 1 EACH CAP.SPRINK PO SCH ×2 (08:50→21:20)
[2021-04-06] MEDS: Chlorhexidine Rinse 15 ML MOUTHWASH MM SCH ×2 (08:50→21:20)
[2021-04-06] MEDS: Multivit/Ca/Min/Fe/FA 1 TAB TABLET PO SCH (08:51)
[2021-04-06] MEDS: Cyanocobalamin (B-12) 1,000 MCG TABLET PO SCH (08:51)
[2021-04-06] MEDS: carvediloL 6.25 MG TABLET PO SCH ×2 (08:51→17:10)
[2021-04-06] MEDS: Loratadine 10 MG TABLET PO SCH (08:51)
[2021-04-06] MEDS: Fluticasone Propionate Nasal 50 MCG/SPRAY BOTTLE NS SCH (08:52)
[2021-04-06] MEDS: Insulin LISPRO 300 UNITS/3 ML VIAL SUBQ SCH ×3 (08:53→16:41)
[2021-04-06] MEDS: acetaZOLAMIDE 250 MG TABLET PO SCH ×2 (13:16→21:24)
[2021-04-06] MEDS: rOPINIRole 1 MG TABLET PO PRN (17:10)
[2021-04-06] MEDS: rOPINIRole 1 MG TABLET PO SCH (21:20)
[2021-04-06] MEDS: Clotrimazole 1% CRM 15 GM TUBE TP SCH (21:40)
[2021-04-07] MEDS: Ipratropium/Albuterol Neb 3 ML IH SCH ×3 (03:23→16:27)
[2021-04-07] MEDS: Budesonide/Formoterol 160/4.5 1 PUFF INH IH SCH (07:43)
[2021-04-07] MEDS: Lactobacillus 1 EACH CAP.SPRINK PO SCH (08:04)
[2021-04-07] MEDS: Chlorhexidine Rinse 15 ML MOUTHWASH MM SCH (08:04)
[2021-04-07] MEDS: carvediloL 6.25 MG TABLET PO SCH (08:05)
[2021-04-07] MEDS: Cyanocobalamin (B-12) 1,000 MCG TABLET PO SCH (08:05)
[2021-04-07] MEDS: acetaZOLAMIDE 250 MG TABLET PO SCH (08:05)
[2021-04-07] MEDS: Multivit/Ca/Min/Fe/FA 1 TAB TABLET PO SCH (08:05)
[2021-04-07] MEDS: Loratadine 10 MG TABLET PO SCH (08:05)
[2021-04-07] MEDS: Clotrimazole 1% CRM 15 GM TUBE TP SCH (08:06)
[2021-04-07] MEDS: Fluticasone Propionate Nasal 50 MCG/SPRAY BOTTLE NS SCH (08:06)
[2021-04-07] MEDS: Insulin LISPRO 300 UNITS/3 ML VIAL SUBQ SCH (08:07)
[2021-04-07 11:50] VITALS: BP 130/66; PULSE 94; TEMP 98.2; O2SAT 100
[2021-04-07 13:05] LABS: Influenza A PCR Negative (Negative); Influenza B PCR Negative (Negative); Resp. Syncytial Virus PCR Negative (Negative); SARS-CoV-2 by PCR (In House) Negative (Negative)
== END 2021-04-07 16:37 | disposition other institution (70) | DRG 291 ==
LOC: SUATTDRO → 2ANU 17:46 → EMEROOARM 17:46 → SUATTDRO 22:17 → 2ANU 23:40 → SUATTDRO 03-21 14:59 → 2NNU 03-21 16:47 → 2NENU 03-23 12:52
PROVIDERS: ADMIT Family Medicine; ATTEND Internal Medicine